=== PATIENT | male | born 2000 | race Caucasian/White ===

== ENCOUNTER → 2019-12-27 12:28 | Outpatient (CLI) | payer OTHER, SELFPAY ==
[2019-12-27 12:48] LABS: Bacteria Urine None Seen; RBC Urine None Seen (0-5/HPF); WBC Urine None Seen (0-5/HPF)
[2019-12-27 13:00] LABS: Culture Indicated Urine Cult Not Indicated; Mucus Urine 1+ (Negative)
== END ==
PROVIDERS: PCP Pediatrics; Visit Provider Nurse Practitioner
DX: R31.9 Hematuria, unspecified (principal)
CPT/HCPCS: 81015

== ENCOUNTER → 2019-12-27 12:34 | Outpatient (CLI) | payer OTHER, SELFPAY ==
[2019-12-27 14:22] LABS: Add Manual Diff / Slide Review NO; Basophils Absolute Auto 0 /uL (0-100); Basophils Percent Auto 0.3 % (0-2); Eosinophils Absolute Auto 200 /uL (0-450); Eosinophils Percent Auto 2.2 % (2-4); Hematocrit 43.7 % (41-53); Hemoglobin 14.5 g/dL (13.5-17.5); Lymphocytes Absolute Auto 2000 /uL (1100-4500); Lymphocytes Percent Auto 19.7 % (25-40); Mean Corpuscular HGB Conc 33.2 % (30-36); Mean Corpuscular Hemoglobin 27.4 PG (26-34); Mean Corpuscular Volume 82.7 fL (80-100); Monocytes Absolute Auto 500 /uL (0-900); Monocytes Percent Auto 5.1 % (3-14); Neutrophils Absolute Auto 7400 /uL (1500-7000); Neutrophils Percent Auto 72.7 % (50-75); Platelet Count 317 X10^3/uL (150-400); Red Blood Cell Count 5.28 X10^6/uL (4.5-5.9); Red Cell Distribution Width 13.7 % (11.6-14.8); White Blood Cell Count 10.2 X10^3/uL (4.5-11.0)
[2019-12-27 14:30] LABS: Alanine Aminotransferase 22 IU/L (<50); Albumin 4.5 g/dL (3.5-5.0); Albumin Globulin Ratio 1.3 (1.0-2.8); Alkaline Phosphatase 142 U/L (38-126); Aspartate Aminotransferase 32 IU/L (17-59); BUN Creatinine Ratio 15.2 (6-22); Bilirubin Total 0.5 mg/dL (0.2-1.3); Blood Urea Nitrogen 14 mg/dL (9-20); Calcium 9.5 mg/dL (8.4-10.2); Carbon Dioxide 27 mmol/L (22-32); Chloride 102 mmol/L (98-107); Estimated Glomerular Filt Rate > 60.0 mL/min (>60); Globulin 3.6 g/dL (1.7-4.1); Glucose 84 mg/dL (70-100); HEMOLYSIS 16 (0-50); Potassium 4.1 mmol/L (3.4-5.1); Sodium 140 mmol/L (137-145); Total Protein 8.1 g/dL (6.3-8.2)
== END ==
PROVIDERS: Referring Provider Nurse Practitioner; Visit Provider Nurse Practitioner
DX: R31.9 Hematuria, unspecified (principal)
CPT/HCPCS: 36415; 80053; 81015; 85025

== ENCOUNTER → 2020-04-25 17:37 | Outpatient (CLI) | payer OTHER, SELFPAY ==
[2020-04-25 18:50] LABS: COVID19 -Nasal RAPID Negative (Negative)
== END ==
PROVIDERS: Visit Provider Physician Assistant
DX: Z20.822 Contact with and (suspected) exposure to COVID-19 (principal)
CPT/HCPCS: 87635

== ENCOUNTER → 2020-07-31 11:24 | Outpatient (CLI) | payer OTHER, SELFPAY ==
--- NOTE | 2020-07-31 11:27 | DI.RAD.S_ITS ---
PROCEDURE: XR ANKLE RT MIN 3V INDICATIONS: RT ankle pain TECHNIQUE: 3 views of the ankle were acquired. COMPARISON: None. FINDINGS: Bones: Fracture of the tip of the lateral malleolus. Ankle mortise is normally aligned. No suspicious bony lesions. Soft tissues: No tibiotalar joint effusion. Achilles tendon appears normal. Lateral soft tissue swelling is noted and ligamentous injury cannot be excluded. IMPRESSION: 1. Fracture involving the tip of the lateral malleolus. 2. Lateral soft tissue swelling. Dictated by: Scarlett Han MD, PhD on 07/31/2020 at 11:56 Approved by: Scarlett Han MD, PhD on 07/31/2020 at 11:57
--- NOTE | 2020-07-31 14:10 | DI.RAD.S_ITS ---
PROCEDURE: XR FOOT RT MIN 3V INDICATIONS: fall, foot pain, lateral malleolar fx TECHNIQUE: 3 views of the foot were acquired. COMPARISON: None. FINDINGS: Bones: No fractures or dislocations. No suspicious bony lesions. Soft tissues: No tibiotalar joint effusion. Achilles tendon appears normal. IMPRESSION: No fracture. No osseous lesion. If symptoms and/or clinical suspicion for pathology persists, further assessment with repeat radiographs (7-10 days) or advanced imaging (e.g. CT, MRI or bone scan) should be considered. Dictated by: Scarlett Han MD, PhD on 07/31/2020 at 14:21 Approved by: Scarlett Han MD, PhD on 07/31/2020 at 14:22
== END ==
PROVIDERS: PCP Registered Nurse; Referring Provider Student in an Organized Health Care Education/Training Program; Visit Provider Student in an Organized Health Care Education/Training Program
DX: S82.61XA Displaced fracture of lateral malleolus of right fibula, initial encounter for closed fracture (principal); M25.571 Pain in right ankle and joints of right foot; M79.671 Pain in right foot; M79.89 Other specified soft tissue disorders; X58.XXXA Exposure to other specified factors, initial encounter
CPT/HCPCS: 73610; 73630

== ENCOUNTER → 2021-01-15 10:24 | Outpatient (CLI) | payer OTHER, SELFPAY ==
[2021-01-15 14:00] LABS: COVID19 -Nasal RAPID Negative (Negative)
== END ==
PROVIDERS: PCP Registered Nurse; Visit Provider Nurse Practitioner Family
DX: J02.9 Acute pharyngitis, unspecified (principal); Z20.822 Contact with and (suspected) exposure to COVID-19
CPT/HCPCS: 87070; 87077; 87147; 87635

== ENCOUNTER 2023-12-07 15:51 | Emergency (ER) | payer OTHER, SELFPAY ==
[2023-12-07 15:58] VITALS: BP 127/68; PULSE 108; RESP 18; TEMP 36.7; O2SAT 97; BMI 41.5
--- NOTE | 2023-12-07 16:02 | ED_ITS ---
HPI - Extremity Injury (Lower) <Hay Carvajal PA-C - Last Filed: 12/07/23 18:33> General Chief Complaint: Extremity Injury, Lower Stated Complaint: Fall, ankle rt px Time Seen by Provider: 12/07/23 16:02 Source: patient Mode of arrival: Wheelchair History of Present Illness HPI Narrative: this is a 23-year-old male presents to the emergency department due to a mechanical ground level fall where he was golfing and fell over twisting his right ankle. He reports pain primarily to the ankle foot. Denies any pain in the knee, hip, or any other part of his body. Denies any numbness or any other concerning signs or symptoms. Related Data Home Medications Medication Instructions Recorded Confirmed Resmed Airsense 10 CPAP #1 ea 01/05/19 09/17/23 fexofenadine 60 mg tablet (Zaynab 60 mg PO BID 01/07/20 09/17/23 Allergy) oxymetazoline 0.05 % nasal mist 1 spray intranasal ONCE 01/07/20 09/17/23 (Afrin (oxymetazoline)) Previous Rx's Medication Instructions Recorded ondansetron HCl 4 mg tablet 4 mg PO Q8H PRN nausea and 12/07/23 vomiting #20 tabs oxycodone 5 mg capsule 5 mg PO TID PRN pain #20 caps 12/07/23 Allergies Allergy/AdvReac Type Severity Reaction Status Date / Time sulfadiazine Allergy Intermediate Hives Verified 12/07/23 15:58 Review of Systems <Hay Carvajal PA-C - Last Filed: 12/07/23 18:33> Review of Systems Narrative: GENERAL: Denies chills, fatigue, malaise, fever, sweats. HEENT: Denies sinus pain, ear pain, sore throat, difficulty swallowing, dizziness. RESPIRATORY: Denies dyspnea, cough, wheezing, hemoptysis, sputum. CARDIOVASCULAR: Denies chest pain, palpitations, orthopnea, edema, GASTROINTESTINAL: Denies nausea, vomiting, abdominal pain, diarrhea, constipation, melena. : Denies dysuria, frequency, incontinence, hematuria, urinary retention. MUSCULOSKELETAL: Reports right ankle pain, denies weakness, joint pain, or bony pain SKIN: Denies rash, skin lesions, or other NEUROLOGIC: Denies weakness, headache, numbness, change in speech, confusion, seizures, incoordination. PSYCHIATRIC: No concerning psychosocial issues. 12 point review of systems is negative except for those stated above Patient History <Hay Carvajal PA-C - Last Filed: 12/07/23 18:33> Medical History Allergies Ankle fracture, lateral malleolus, closed Insomnia Obesity (BMI 30-39.9) Obstructive sleep apnea of adult Snoring Family History Father Hypertension Grandfather Cancer Grandmother Hypertension Grandfather Stroke Grandmother Mental health problem Social History Smoking Status: Never smoker second hand exposure: Yes (occasionally ) alcohol intake: current (~3 drinks per week ) substance use type: does not use Smoking Status: Never smoker alcohol intake frequency: 0-2 drinks per day Substance Use Type: does not use Exam <Hay Carvajal PA-C - Last Filed: 12/07/23 18:33> Narrative Exam Narrative: GENERAL: Well-developed patient, in mild distress. HEAD: Atraumatic. Normocephalic. EYES: Pupils equal round and reactive. Extraocular motions intact. No scleral icterus. No injection or drainage. ENT: Nose without bleeding, purulent drainage. Throat without erythema, tonsillar hypertrophy or exudate. Airway patent. NECK: Trachea midline. Non tender EXTREMITIES: Tenderness to palpation to the lateral malleolus as well as proximal portion of the foot, neurovascularly intact throughout NEURO: AOx3. SKIN: No rash or erythema of visible areas Initial Vital Signs Initial Vital Signs: Vital Signs Temperature 98.0 F 12/07/23 15:58 Pulse Rate 108 H 12/07/23 15:58 Respiratory Rate 18 12/07/23 15:58 Blood Pressure 127/68 12/07/23 15:58 Pulse Oximetry 97 12/07/23 15:58 Oxygen Delivery Method Room Air 12/07/23 15:58 <Karen Dugan MD - Last Filed: 12/07/23 18:57> Initial Vital Signs Initial Vital Signs: Vital Signs Temperature 98.0 F 12/07/23 15:58 Pulse Rate 108 H 12/07/23 15:58 Respiratory Rate 18 12/07/23 15:58 Blood Pressure 127/68 12/07/23 15:58 Pulse Oximetry 97 12/07/23 15:58 Oxygen Delivery Method Room Air 12/07/23 15:58 Procedures <Hay Carvajal PA-C - Last Filed: 12/07/23 18:33> Orthopedic Splinting/Casting Injury #1: Time of procedure: 18:24 Side: right Lower Extremity Injury Location: lower leg Lower Extremity Immobilizer: posterior splint and stirrup splint Post splinting neuro exam: intact Post splinting vascular exam: intact Placed by: Nursing Course <Hay Carvajal PA-C - Last Filed: 12/07/23 18:33> Orders Ordered: ED Orders 12/07/23 16:06 XR ankle RT min 3V Stat XR foot RT min 3V Stat Discontinued Medications Oxycodone HCl (Oxycodone Ir 5 Mg Tablet) 5 mg PO NOW ONE Stop: 12/07/23 17:47 Last Admin: 12/07/23 18:00 Dose: 5 mg Documented By: SB Vital Signs Vital signs: Vital Signs - 8 hr 12/07/23 15:58 Temperature 98.0 F Pulse Rate 108 H Respiratory Rate 18 Blood Pressure 127/68 Pulse Oximetry 97 Oxygen Delivery Method Room Air <Karen Dugan MD - Last Filed: 12/07/23 18:57> Orders Ordered: ED Orders 12/07/23 16:06 XR ankle RT min 3V Stat XR foot RT min 3V Stat Discontinued Medications Oxycodone HCl (Oxycodone Ir 5 Mg Tablet) 5 mg PO NOW ONE Stop: 12/07/23 17:47 Last Admin: 12/07/23 18:00 Dose: 5 mg Documented By: SB Vital Signs Vital signs: Vital Signs - 8 hr 12/07/23 15:58 Temperature 98.0 F Pulse Rate 108 H Respiratory Rate 18 Blood Pressure 127/68 Pulse Oximetry 97 Oxygen Delivery Method Room Air MDM - Extremity Injury (Lower) <Hay Carvajal PA-C - Last Filed: 12/07/23 18:33> Imaging Data Extremity x-ray #1: Radiologist's Impression: [address] [address] XRay Report Signed Patient: Austin Parry MR#: [id number] : 2000 Acct:[id number] Age/Sex: 23 / M Date of Service: 12/07/23 Loc: ED Accession Number: [id number] Procedure: XR ankle RT min 3V Ordering Provider: Hay Carvajal PA-C PROCEDURE: XR ANKLE RT MIN 3V INDICATIONS: R ankle pain TECHNIQUE: 3 views of the ankle were acquired. COMPARISON: [facility], , XR ANKLE RT MIN 3V, 07/31/2020, 11:26. FINDINGS: Bones: Heterogeneous, punctate calcification along the inner margin at the tip of the lateral malleolus. Displaced navicular fracture at the dorsum. Soft tissues: Large tibiotalar effusion. Soft tissue edema. IMPRESSION: Displaced navicular fracture at the dorsum. Avulsion fracture of the medial malleolus. No unstable fracture features. Dictated by: Julian Carmichael M.D. on 12/07/2023 at 17:11 Approved by: Julian Carmichael M.D. on 12/07/2023 at 17:12 Extremity x-ray #2: Radiologist's Impression: [place] [address] XRay Report Signed Patient: Austin Parry MR#: [id number] : 2000 Acct:[id number] Age/Sex: 23 / M Date of Service: 12/07/23 Loc: ED Accession Number: [id number] Procedure: XR foot RT min 3V Ordering Provider: Hay Carvajal PA-C PROCEDURE: XR FOOT RT MIN 3V INDICATIONS: R foot pain after fall TECHNIQUE: 3 views of the foot were acquired. COMPARISON: [facility], , XR FOOT RT MIN 3V, 07/31/2020, 14:17. FINDINGS: Bones: Dorsal navicular bone fracture. No additional fractures. Soft tissues: Large tibiotalar joint effusion. Achilles tendon appears normal. IMPRESSION: Dorsal navicular bone fracture. No additional fractures. Dictated by: Julian Carmichael M.D. on 12/07/2023 at 17:12 Approved by: Julian Carmichael M.D. on 12/07/2023 at 17:13 MDM Narrative Medical decision making narrative: ED course: This is a 23-year-old male presents to the emergency department presenting to the emergency department after a rolled ankle sustaining a dorsal navicular fracture as well as the lateral malleolus fracture. Patient was neurovascularly intact throughout. Patient was placed in a posterior short-leg splint with stirrups and recommended to be nonweightbearing until he was able to follow up with Dr. Murdock of Orthopedics. Neurovascularly intact post splint placement. Patient was prescribed oxycodone for breakthrough pain control. No other injuries to the rest of his body. CC: Right ankle pain Complicating co-morbidities: None Data collected from: Previous notes Medical records reviewed: Patient was not been to this emergency department in the past. Was last seen in the walk-in clinic 2 months ago due to a your injury. History of ankle fracture in the past. History of obesity. Differential considered, but not limited to: Fracture, soft tissue injury, sprain, neurovascular injury Exam documented above, pertinent findings include: Neurovascularly intact pre and post splint placement Lab Test results independently reviewed as above. Pertinent findings: None obtained Imaging studies independently reviewed: Ankle x-ray states medial malleolus fracture although suspect small air in reading as lateral malleolus fracture is apparent. There was also a dorsal navicular fracture Scores Used: None MIPS Elements: None Consultations: None Treatments: Posterior short-leg splint, oxycodone for pain control Re-evaluations: Neurovascularly intact post splint placement Discussion: Discussed plan with the patient was comfortable with the plan Diagnosis: Navicular fracture, lateral malleolus fracture Disposition: see below, along with detailed discharge instructions that have been reviewed with patient as well as indications for ED re-evaluation and additional outpatient follow up Discharge Plan Departure Patient Disposition: Home Clinical Impression: Foot, fracture, navicular, Fracture of lateral malleolus Activity Restrictions/Additional Instructions: Thank you for coming to the [facility] Emergency Department today. As we discussed you have a fracture of your foot bone as well as your lateral ankle bone. Please follow up with Dr. Murdock for further management. Please keep your foot in the splint and do not bear any weight through it until you are able to see them. Please call their office on Friday. Please return to the emergency department if you develop any numbness, severe pain, or any other concerning signs or symptoms. I hope you feel better soon. Please follow up with your primary care provider within a week if your symptoms continue. If you do not have a primary care provider please contact the [facility] Resource line at [phone]. They will ask some questions about your medical history and help you get set up with a provider in the community. Prescriptions: New oxycodone 5 mg capsule 5 mg PO TID PRN (Reason: pain) Qty: 20 0RF ondansetron HCl 4 mg tablet 4 mg PO Q8H PRN (Reason: nausea and vomiting) Qty: 20 0RF No Action fexofenadine [Zaynab Allergy] 60 mg tablet 60 mg PO BID Afrin (oxymetazoline) 0.05 % mist 1 spray NASAL ONCE (DME) Resmed Airsense 10 CPAP Qty: 1 Patient Comments: Pressure: 8-12 cmH2O DME: [facility] Rx Instructions: As directed Referrals: Miscellaneous,Doctor, MD [Primary Care Provider] - Mitch Murdock MD [Physician] - (f/u navicular and lateral malleolus fracture ) Stand Alone Forms: Patient Portal/API ED Sign-out <Karen Dugan MD - Last Filed: 12/07/23 18:57> Cosign ED Attending Cosignature Attestation: I did not see this patient. I was available all times for consultation.
--- NOTE | 2023-12-07 16:06 | DI.RAD.S_ITS ---
PROCEDURE: XR ANKLE RT MIN 3V INDICATIONS: R ankle pain TECHNIQUE: 3 views of the ankle were acquired. COMPARISON: [facility], CR, XR ANKLE RT MIN 3V, 07/31/2020, 11:26. FINDINGS: Bones: Heterogeneous, punctate calcification along the inner margin at the tip of the lateral malleolus. Displaced navicular fracture at the dorsum. Soft tissues: Large tibiotalar effusion. Soft tissue edema. IMPRESSION: Displaced navicular fracture at the dorsum. Avulsion fracture of the medial malleolus. No unstable fracture features. Dictated by: Julian Carmichael M.D. on 12/07/2023 at 17:11 Approved by: Julian Carmichael M.D. on 12/07/2023 at 17:12
--- NOTE | 2023-12-07 16:06 | DI.RAD.S_ITS ---
PROCEDURE: XR FOOT RT MIN 3V INDICATIONS: R foot pain after fall TECHNIQUE: 3 views of the foot were acquired. COMPARISON: [facility], , XR FOOT RT MIN 3V, 07/31/2020, 14:17. FINDINGS: Bones: Dorsal navicular bone fracture. No additional fractures. Soft tissues: Large tibiotalar joint effusion. Achilles tendon appears normal. IMPRESSION: Dorsal navicular bone fracture. No additional fractures. Dictated by: Julian Carmichael M.D. on 12/07/2023 at 17:12 Approved by: Julian Carmichael M.D. on 12/07/2023 at 17:13
[2023-12-07] MEDS: OXYCODONE IR 5 MG TABLET PO (18:00)
--- NOTE | 2023-12-07 19:04 | ED.LOWEXIN ---
HPI - Extremity Injury (Lower) General Chief Complaint: Extremity Injury, Lower Stated Complaint: Fall, ankle rt px Time Seen by Provider: 12/07/23 16:02 Source: patient Mode of arrival: Wheelchair Related Data Home Medications Medication Instructions Recorded Confirmed Resmed Airsense 10 CPAP #1 ea 01/05/19 09/17/23 fexofenadine 60 mg tablet (Zaynab 60 mg PO BID 01/07/20 09/17/23 Allergy) oxymetazoline 0.05 % nasal mist 1 spray intranasal ONCE 01/07/20 09/17/23 (Afrin (oxymetazoline)) Previous Rx's Medication Instructions Recorded ondansetron HCl 4 mg tablet 4 mg PO Q8H PRN nausea and 12/07/23 vomiting #20 tabs oxycodone 5 mg capsule 5 mg PO TID PRN pain #20 caps 12/07/23 Allergies Allergy/AdvReac Type Severity Reaction Status Date / Time sulfadiazine Allergy Intermediate Hives Verified 12/07/23 15:58 Patient History Medical History Allergies Ankle fracture, lateral malleolus, closed Insomnia Obesity (BMI 30-39.9) Obstructive sleep apnea of adult Snoring Family History Father Hypertension Grandfather Cancer Grandmother Hypertension Grandfather Stroke Grandmother Mental health problem Social History Smoking Status: Never smoker second hand exposure: Yes (occasionally ) alcohol intake: current (~3 drinks per week ) substance use type: does not use Smoking Status: Never smoker alcohol intake frequency: 0-2 drinks per day Substance Use Type: does not use Exam Initial Vital Signs Initial Vital Signs: Vital Signs Temperature 98.0 F 12/07/23 15:58 Pulse Rate 108 H 12/07/23 15:58 Respiratory Rate 18 12/07/23 15:58 Blood Pressure 127/68 12/07/23 15:58 Pulse Oximetry 97 12/07/23 15:58 Oxygen Delivery Method Room Air 12/07/23 15:58 Course Orders Ordered: ED Orders 12/07/23 16:06 XR ankle RT min 3V Stat XR foot RT min 3V Stat Discontinued Medications Oxycodone HCl (Oxycodone Ir 5 Mg Tablet) 5 mg PO NOW ONE Stop: 12/07/23 17:47 Last Admin: 12/07/23 18:00 Dose: 5 mg Documented By: SILVIO Vital Signs Vital signs: Vital Signs - 8 hr 12/07/23 15:58 Temperature 98.0 F Pulse Rate 108 H Respiratory Rate 18 Blood Pressure 127/68 Pulse Oximetry 97 Oxygen Delivery Method Room Air Discharge Plan Departure Patient Disposition: Home Clinical Impression: Foot, fracture, navicular, Fracture of lateral malleolus Activity Restrictions/Additional Instructions: Thank you for coming to the [facility] Emergency Department today. As we discussed you have a fracture of your foot bone as well as your lateral ankle bone. Please follow up with Dr. Murdock for further management. Please keep your foot in the splint and do not bear any weight through it until you are able to see them. Please call their office on Friday. Please return to the emergency department if you develop any numbness, severe pain, or any other concerning signs or symptoms. I hope you feel better soon. Please follow up with your primary care provider within a week if your symptoms continue. If you do not have a primary care provider please contact the [facility] Resource line at [phone]. They will ask some questions about your medical history and help you get set up with a provider in the community. Prescriptions: New oxycodone 5 mg capsule 5 mg PO TID PRN (Reason: pain) Qty: 20 0RF ondansetron HCl 4 mg tablet 4 mg PO Q8H PRN (Reason: nausea and vomiting) Qty: 20 0RF No Action fexofenadine [Zaynab Allergy] 60 mg tablet 60 mg PO BID Afrin (oxymetazoline) 0.05 % mist 1 spray NASAL ONCE (DME) Resmed Airsense 10 CPAP Qty: 1 Patient Comments: Pressure: 8-12 cmH2O DME: [facility] Rx Instructions: As directed Referrals: Miscellaneous,Doctor, [Primary Care Provider] - Mitch Murdock MD [Physician] - (f/u navicular and lateral malleolus fracture ) Stand Alone Forms: Patient Portal/API, Work Release Note
== END 2023-12-07 19:16 | disposition home or self-care (01) ==
PROVIDERS: Emergency Provider Physician Assistant Medical
DX: S92.251A Displaced fracture of navicular [scaphoid] of right foot, initial encounter for closed fracture (principal); S82.61XA Displaced fracture of lateral malleolus of right fibula, initial encounter for closed fracture; W18.30XA Fall on same level, unspecified, initial encounter
CPT/HCPCS: 29515; 73610; 73630; 99283; 99284

== ENCOUNTER → 2024-01-15 08:57 | Outpatient (CLI) | payer OTHER, SELFPAY ==
[2024-01-15 10:12] LABS: Add Manual Diff / Slide Review NO; Basophils Absolute Auto 200 /uL (0-100); Eosinophils Absolute Auto 500 /uL (0-450); Eosinophils Percent Auto 5.8 % (2-4); Hematocrit 40.1 % (41-53); Hemoglobin 13.5 g/dL (13.5-17.5); Lymphocytes Absolute Auto 1900 /uL (1100-4500); Lymphocytes Percent Auto 23.7 % (25-40); Mean Corpuscular HGB Conc 33.6 % (30-36); Mean Corpuscular Hemoglobin 27.5 PG (26-34); Monocytes Absolute Auto 300 /uL (0-900); Monocytes Percent Auto 4.1 % (3-14); Neutrophils Absolute Auto 5100 /uL (1500-7000); Neutrophils Percent Auto 64.4 % (50-75); Platelet Count 259 X10^3/uL (150-400); Red Blood Cell Count 4.89 X10^6/uL (4.5-5.9); Red Cell Distribution Width 14.5 % (11.6-14.8); White Blood Cell Count 7.9 X10^3/uL (4.5-11.0)
[2024-01-15 10:31] LABS: BUN Creatinine Ratio 16.3 (6-22); Blood Urea Nitrogen 14 mg/dL (9-20); Calcium 9.4 mg/dL (8.4-10.2); Carbon Dioxide 26 mmol/L (22-32); Chloride 103 mmol/L (98-107); Estimated Glomerular Filt Rate > 60 mL/min (>60); Glucose 108 mg/dL (70-100); HEMOLYSIS < 15 (0-50); Potassium 4.1 mmol/L (3.4-5.1); Sodium 137 mmol/L (137-145)
[2024-01-15 11:02] LABS: TSH w/ Reflex to FT4 3.27 uIU/mL (0.47-4.68)
== END ==
PROVIDERS: PCP Nurse Practitioner Family; Referring Provider Nurse Practitioner Family; Visit Provider Nurse Practitioner Family
DX: E66.9 Obesity, unspecified (principal); G47.00 Insomnia, unspecified; R53.83 Other fatigue
CPT/HCPCS: 36415; 80048; 84443; 85025